=== PATIENT | female | born 1970 | race Caucasian/White ===

== ENCOUNTER 2016-06-20 21:30 | Emergency (ER) | payer OTHER ==
[2016-06-20 21:38] VITALS: TEMP 97.7
[2016-06-20 22:40] LABS: COLOR PALE YELLOW; LEUKOCYTE ESTERASE,URINE 3+ (NEGATIVE); NITRITE,URINE NEGATIVE (NEGATIVE)
[2016-06-20 22:51] LABS: BACTERIA 3+ /hpf (NONE SEEN); MUCUS TRACE /lpf (NONE-1+); RBC,URINE 15-25 /hpf (0-3); WBC,URINE 50-182 /hpf (0-3)
[2016-06-20] MEDS ORDERED: CEPHALEXIN 500MG PREPACK#4 BTL TAKEHOME ONE (22:59)
[2016-06-20] MEDS ORDERED: PHENAZOPYRIDINE HCL 200 MG TAB PO ONE (23:04)
--- NOTE | 2016-06-20 23:06 | EDPHY ---
H & P Time Seen by Provider: 06/20/16 22:35 HPI/ROS: CHIEF COMPLAINT: Urinary frequency, left flank pain HISTORY OF PRESENT ILLNESS: 41-year-old female presents to the emergency department complaining of left flank pain, vomiting, and dysuria and frequency with urination. Patient states on Sunday, 1 day ago she started having some dysuria, urgency and frequency with urination. She states this evening she developed left flank pain and became nauseous. She vomited at home. She no longer feels nauseous. She feels only very mild pain in her left flank now. She has never had this in the past. No history of kidney stones. No fevers. She just ended her menstrual cycle and denies . Denies chest pain or difficulty breathing. REVIEW OF SYSTEMS: Constitutional: No fever, no chills. Eyes: No double or blurry vision. ENT: No sore throat. Respiratory: No cough, no shortness of breath. Cardiac: No chest pain. Gastrointestinal: Mild abdominal pain. Vomiting. No diarrhea. Genitourinary: No dysuria. Musculoskeletal: Left leg pain. No neck pain Skin: No rashes. Neurological: No headache. Past Medical/Surgical History: Negative Social History: and lives in [place] Smoking Status: Never smoked Physical Exam: General Appearance: Alert, no distress. 36.5, 154/100, 98% on room air. Eyes: Pupils equal and round. Extraocular motions are all intact. ENT: Mouth: Mucous membranes moist. Respiratory: No wheezing, rhonchi, or rales, lungs are clear to auscultation. Cardiovascular: Regular rate and rhythm. Gastrointestinal: Abdomen is soft and nontender, no masses, no rebound or guarding, bowel sounds normal. No CVA tenderness bilaterally. Neurological: Alert and oriented x 3, cranial nerves II through XII grossly intact Skin: Warm and dry, no rashes. Musculoskeletal: Nontender to palpate along the cervical, thoracic or lumbar spine. Neck is supple. Extremities: Full range of motion and no peripheral edema. Psychiatric: Patient is oriented X 3, there is no agitation. Constitutional: Initial Vital Signs Temperature (C) 36.5 C 06/20/16 21:34 Heart Rate 65 06/20/16 21:34 Respiratory Rate 18 06/20/16 21:34 Blood Pressure 154/100 H 06/20/16 21:34 O2 Sat (%) 98 06/20/16 21:34 O2 Delivery Mode Room Air Allergies/Adverse Reactions: No Known Allergies Allergy (Unverified 06/17/12 02:21) Home Medications: Medication Instructions Recorded Levothyroxine Sodium [Synthroid] 0.125 mcg PO DAILY 06/17/12 VITAMIN D 07/12/15 Cephalexin [Keflex] 500 mg PO QID #28 cap 06/20/16 Phenazopyridine HCl [Pyridium] 200 mg PO Q8PRN PRN #6 tab 06/20/16 Medical Decision Making ED Course/Re-evaluation: 45-year-old female presents with dysuria, urgency and frequency with urination. She developed left flank pain and began vomiting today. The patient does not appear ill. She is afebrile. She has no CVA tenderness currently. We did discuss possible kidney stone. The patient has never had a kidney stone in the past. Urinalysis reveals a large amount of white cells and 15-25 red blood cells. Urine cultures pending. Clinically I think this patient has pyelonephritis. I offered CT imaging to evaluate for possible kidney stone the patient declined. I think this is reasonable. The patient will return if she develops fever, vomiting, recurring flank pain, or if she feels worse in any way. She was comfortable with this plan. The patient will be started on Keflex. She was also given Pyridium. Differential Diagnosis: Including but not limited to urinary tract infection, pyelonephritis, kidney stone, acute appendicitis - Data Points Laboratory Results: 06/20/16 06/20/16 22:25 22:25 Urine Color PALE YELLOW Urine Appearance HAZY Urine pH 6.0 (5.0-7.5) Ur Specific [place] 1.005 (1.002-1.030) Urine Protein 1+ H (NEGATIVE) Urine Ketones NEGATIVE (NEGATIVE) Urine Blood 2+ H (NEGATIVE) Urine Nitrate NEGATIVE (NEGATIVE) Urine Bilirubin NEGATIVE (NEGATIVE) Urine Urobilinogen NEGATIVE EU EU (0.2-1.0) Ur Leukocyte Esterase 3+ H (NEGATIVE) Urine RBC Cancelled 15-25 /hpf H /hpf (0-3) Urine WBC Cancelled 50-182 /hpf H /hpf (0-3) Ur Epithelial Cells Cancelled TRACE /lpf /lpf (NONE-1+) Ur Renal Epithelial Cell Cancelled Urine Crystals Cancelled Ammonium Urate Crystals Cancelled Calcium Carbonate Cryst Cancelled Calcium Phosphate Cryst Cancelled Calcium Oxalate Crystal Cancelled Leucine Crystals Cancelled Cystine Crystals Cancelled Uric Acid Crystals Cancelled Triple Phos Crystals Cancelled Sulfonamide Crystals Cancelled Cholesterol Crystals Cancelled Tyrosine Crystals Cancelled Bilirubin Crystals Cancelled Amorphous Sediment Cancelled Urine Bacteria Cancelled 3+ /hpf H /hpf (NONE SEEN) Epithelial Casts Cancelled Fatty Casts Cancelled Hyaline Casts Cancelled Granular Casts Cancelled Waxy Casts Cancelled Broad Casts Cancelled RBC Casts Cancelled WBC Casts Cancelled Urine Mucus Cancelled TRACE /lpf /lpf (NONE-1+) Urine Trichomonas Cancelled Urine Yeast Cancelled Urine Sperm Cancelled Ur Oval Fat Bodies Cancelled Ur Free Fat Droplets Cancelled Urine Glucose NEGATIVE (NEGATIVE) Urine Comment Cancelled Medications Given: Discontinued Medications Cephalexin (Keflex 500 Mg Prepack#4) 1 btl TAKEHOME EDNOW ONE PRN Reason: Protocol Stop: 06/20/16 23:00 Last Admin: 06/20/16 23:09 Dose: 1 btl Phenazopyridine HCl (Pyridium) 200 mg PO EDNOW ONE Stop: 06/20/16 23:05 Last Admin: 06/20/16 23:14 Dose: 200 mg Departure - Departure Disposition: Home, Routine, Self-Care Clinical Impression: Pyelonephritis Condition: Good Instructions: Kidney Infection (ED) Additional Instructions: Keflex 500 mg 4 times daily for 7 days. Pyridium 200 mg every 8 hours as needed for burning or urinary frequency. Return to the emergency department if you developed recurring vomiting, fever, recurring flank pain, or if you feel worse in any way. Call [phone] for the results of your urine culture in 48 hours. Referrals: Amie Leon MD [Primary Care Provider] - As per Instructions Prescriptions: Cephalexin [Keflex] 500 mg PO QID #28 cap Phenazopyridine HCl [Pyridium] 200 mg PO Q8PRN PRN #6 tab PRN Reason: P.r.n. dysuria
[2016-06-20 23:22] VITALS: BP 145/89; PULSE 64; RESP 16; O2SAT 96
== END 2016-06-20 23:22 | disposition home or self-care (01) ==
DX: N12 Tubulo-interstitial nephritis, not specified as acute or chronic (principal)

== ENCOUNTER 2016-07-26 21:54 | Emergency (ER) | payer OTHER ==
[2016-07-26 22:06] VITALS: BP 146/94; PULSE 79; RESP 16; TEMP 98.2; O2SAT 96
--- NOTE | 2016-07-26 22:44 | EDPHY ---
H & P Time Seen by Provider: 07/26/16 22:24 HPI/ROS: CHIEF COMPLAINT: left 2nd toe pain HISTORY OF PRESENT ILLNESS: 45-year-old female presents emergency department complaining of left 2nd toe pain after she stubbed her toe this morning. Patient reports increased bruising and swelling in this toe with pain on weight- bearing. She denies numbness or tingling to this foot, she denies other complaints. Smoking Status: Never smoked Physical Exam: GEN: Awake, alert, oriented, no acute distress RESP: nl resp effort MSK: Left 2nd toe with normal range of motion. Tenderness to palpation diffusely to toe, mild swelling and ecchymosis diffusely, cap refill less than 2 seconds SKIN: No break in skin Constitutional: Initial Vital Signs Temperature (C) 36.8 C 07/26/16 22:03 Heart Rate 79 07/26/16 22:03 Respiratory Rate 16 07/26/16 22:03 Blood Pressure 146/94 H 07/26/16 22:03 O2 Sat (%) 96 07/26/16 22:03 O2 Delivery Mode Room Air Allergies/Adverse Reactions: No Known Allergies Allergy (Unverified 07/26/16 22:02) Home Medications: Medication Instructions Recorded Levothyroxine Sodium [Synthroid] 0.125 mcg PO DAILY 06/17/12 MDM/Departure - MDM Imaging Results: Imaging Impressions Foot X-Ray 07/26/16 22:07 Impression: 1. No acute osseous abnormality seen. 2. Moderate calcaneal spurs. Imaging: I viewed and interpreted images myself - Depart Disposition: Home, Routine, Self-Care Clinical Impression: Sprain of toe, second, left Qualifiers: Encounter type: initial encounter Qualified Code(s): S93.505A - Unspecified sprain of left lesser toe(s), initial encounter Condition: Good Instructions: Foot Contusion (ED) Additional Instructions: Rest, ice, elevate, take 600 mg of ibuprofen every 8 hours with for 3-5 days. Toes taped together for support wear the postop shoe for comfort. Follow up with your orthopedist for pain that is not improving in the next 5-7 days. Return to the emergency department for any worsening symptoms, new symptoms or concerns. Referrals: Amie Leon MD [Primary Care Provider] - As per Instructions Sabas Metcalf MD [Medical Doctor] - As per Instructions (Orthopedist on-call)
== END 2016-07-26 23:00 | disposition home or self-care (01) ==
DX: S93.505A Unspecified sprain of left lesser toe(s), initial encounter (principal); W22.8XXA Striking against or struck by other objects, initial encounter
CPT/HCPCS: L3260